=== PATIENT | male | born 1975 | race American Indian/Alaskan Native ===

== ENCOUNTER 2017-06-27 19:24 | Emergency (ER) | payer MEDICAID, OTHER ==
[~2017-06-27] VITALS: Ht 177.8 cm; Wt 104.5 kg
[2017-06-27 19:31] VITALS: Ht 177.8 cm; Wt 104.5 kg
[2017-06-27 20:31] LABS: BASOPHIL # 0.1 10^3/ul (0.0-0.1); BASOPHILS % 0.7 % (0.0-2.0); EOSINOPHILS # 0.4 10^3/ul (0.0-0.5); EOSINOPHILS % 3.8 % (0.0-7.0); HEMATOCRIT 39.2 % (42.0-52.0); HEMOGLOBIN 13.6 g/dl (14.0-18.0); LYMPHOCYTES # 2.7 10^3/ul (0.8-2.9); LYMPHOCYTES % 29.3 % (15.0-51.0); MEAN CORPUSCULAR HEMOGLOBIN 30.8 pg (29.0-33.0); MEAN CORPUSCULAR HGB CONC 34.7 g/dl (32.0-37.0); MEAN CORPUSCULAR VOLUME 88.7 fl (82.0-101.0); MEAN PLATELET VOLUME 9.8 fl (7.4-10.4); MONOCYTE # 0.6 10^3/ul (0.3-0.9); MONOCYTES % 6.8 % (0.0-11.0); NEUTROPHIL # 5.4 10^3/ul (1.6-7.5); PLATELET COUNT 228 10^3/UL (140-415); RED BLOOD COUNT 4.42 10^6/ul (4.70-6.10); RED CELL DISTRIBUTION WIDTH 13.3 % (11.5-14.5); WHITE BLOOD COUNT 9.1 10^3/ul (4.8-10.8)
[2017-06-27 20:49] LABS: ALANINE AMINOTRANSFERASE 43 IU/L (13-69); ALBUMIN 4.1 g/dl (3.3-4.9); ALBUMIN/GLOBULIN RATIO 1.51; ALKALINE PHOSPHATASE 69 IU/L (42-121); ANION GAP 13 (8-16); ASPARTATE AMINO TRANSFERASE 21 IU/L (15-46); BILIRUBIN,INDIRECT 0.1 mg/dl (0-1.1); BILIRUBIN,TOTAL 0.1 mg/dl (0.2-1.3); BLOOD UREA NITROGEN 17 mg/dl (7-20); CALCIUM 8.8 mg/dl (8.4-10.2); CARBON DIOXIDE 27 mmol/L (21-31); CHLORIDE 104 mmol/L (97-110); CREATININE 1.19 mg/dl (0.61-1.24); GLUCOSE 100 mg/dl (70-220); POTASSIUM 3.9 mmol/L (3.5-5.1); SODIUM 140 mmol/L (135-144); TOTAL PROTEIN 6.8 g/dl (6.1-8.1)
[2017-06-27 20:50] LABS: ACETAMINOPHEN < 10.0 ug/ml (10.0-30.0); ETHANOL < 10.0 mg/dl; SALICYLATE < 1.0 mg/dl (5.0-30.0)
--- NOTE | 2017-06-27 21:08 | PSY ---
Date/Time of Note Date/Time of Note DATE: 06/27/17 TIME: 21:03 Psychiatric Subjective Eval Consent Pt consented to telemedicine: Yes Subjective Evaluation Patient location: emergency Chief Complaint: STATES "I FEEL SUICIDAL SINCE YESTERDAY, BUT I HAVE NO DEFINITE PLAN" Reason for consult: suicidal ideation History of present illness Pt is a 41 year old male with depression, anhedonia, impaired sleep, weight gain , low energy and suicidal thinking. He reports depression for about one month. He stopped his wellbutrin about 1-2 weeks ago (for no reason). Patient has had suicidal thinking for last 1-2 days. He does not feel safe and brought himself to the hospital "before it gets too far." Patient reports he does not feel safe out of the hospital. He denies hallucinations and delusions. He denies s/s of hypomania and misael. Past psychiatric history Recent psychiatric admission 6 months ago for depression. Has a suicide attempts about 6 years ago. Hospitalization: yes Family History Denies Medical history See medical record Social History Marital status: single DPA/Conservatorship: No Occupation/Skilled Nursing: Entertainment/acting Psychiatric Objective Eval Mental Status Examination: Appearance: Groomed, Poor Hygiene Eye Contact: Good Psychomotor Activity: Normal Behavior: Cooperative Speech: Soft AFFECT: Blunt Mood: Depressed Though Process: Linear Thought Content: Normal Suicidal: Yes Homicidal: No On 72 hour hold: No Orientation: x4 Cognition: Alert Insight: Intact Judgement: Intact Attention Span: Intact Laboratory Results Laboratory Tests Test 06/27/17 20:00 White Blood Count 9.110^3/ul Red Blood Count 4.4210^6/ul Hemoglobin 13.6g/dl Hematocrit 39.2% Mean Corpuscular Volume 88.7fl Mean Corpuscular Hemoglobin 30.8pg Mean Corpuscular Hemoglobin Concent 34.7g/dl Red Cell Distribution Width 13.3% Platelet Count 76979^3/UL Mean Platelet Volume 9.8fl Neutrophils % 59.0% Lymphocytes % 29.3% Monocytes % 6.8% Eosinophils % 3.8% Basophils % 0.7% Nucleated Red Blood Cells % 0.0/100WBC Neutrophils # 5.410^3/ul Lymphocytes # 2.710^3/ul Monocytes # 0.610^3/ul Eosinophils # 0.410^3/ul Basophils # 0.110^3/ul Nucleated Red Blood Cells # 0.010^3/ul Sodium Level 140mmol/L Potassium Level 3.9mmol/L Chloride Level 104mmol/L Carbon Dioxide Level 27mmol/L Anion Gap 13 Blood Urea Nitrogen 17mg/dl Creatinine 1.19mg/dl Glucose Level 100mg/dl Calcium Level 8.8mg/dl Total Bilirubin 0.1mg/dl Direct Bilirubin 0.00mg/dl Indirect Bilirubin 0.1mg/dl Aspartate Amino Transf (AST/SGOT) 21IU/L Alanine Aminotransferase (ALT/SGPT) 43IU/L Alkaline Phosphatase 69IU/L Total Protein 6.8g/dl Albumin 4.1g/dl Globulin 2.70g/dl Albumin/Globulin Ratio 1.51 Salicylates Level < 1.0mg/dl Acetaminophen Level < 10.0ug/ml Ethyl Alcohol Level < 10.0mg/dl Assessment and Plan Assessment/Diagnosis Duarte I: Major Depressive Disorder, Recurrent, Unspecified Recommendation/Plan Medication Management NA Psychotherapy Support Pt. Caregiver/Family Education NA Follow-up/Disposition Recommend transfer to inpatient psychiatry. Pt is voluntary. He reports suicidal thoughts, depression and he does not feel safe out of the hospital. [id number] Recommendation: voluntary transfer to psychiatry inpatient RANDY COOK Jun 27, 2017 21:08
[2017-06-27 21:22] LABS: ADD UMIC NO; UR ASCORBIC ACID NEGATIVE (NEGATIVE); UR BILIRUBIN (Dip) NEGATIVE (NEGATIVE); UR BLOOD (Dip) NEGATIVE (NEGATIVE); UR CLARITY CLEAR (CLEAR); UR COLOR YELLOW (YELLOW); UR GLUCOSE (Dip) NEGATIVE (NEGATIVE); UR KETONES (Dip) NEGATIVE (NEGATIVE); UR LEUKOCYTE ESTERASE (Dip) NEGATIVE Leu/ul (NEGATIVE); UR NITRITE (Dip) NEGATIVE (NEGATIVE); UR SPECIFIC GRAVITY (Dip) 1.021 (1.003-1.030); UR TOTAL PROTEIN (Dip) NEGATIVE (NEGATIVE); UR UROBILINOGEN (Dip) 1+ mg/dL (NEGATIVE)
--- NOTE | 2017-06-27 21:30 | ERD ---
ER Documentation Chief Complaint Chief Complaint STATES "I FEEL SUICIDAL SINCE YESTERDAY, BUT I HAVE NO DEFINITE PLAN" HPI The patient is a 41-year-old male, presenting to the ER because of acute suicidal ideation, he has no plan. He denies homicidal/auditory/visual hallucination. He denies headache, neck pain, chest pain, abdominal pain. He smokes, denies drinking, denies illicit drug Medical history: Depression Surgical History: Right tib-fib ROS All systems reviewed and are negative except as per history of present illness. PMhx/Soc Medical and Surgical Hx: pt denies Surgical Hx Hx Psychiatric Problems: Yes (PTSD, Depression, ADHD) Hx Alcohol Use: No Hx Substance Use: No Hx Tobacco Use: No Smoking Status: Never smoker Physical Exam Vitals Vital Signs Date Time Temp Pulse Resp B/P Pulse Ox O2 Delivery O2 Flow Rate FiO2 06/27/17 19:31 98.0 90 20 120/72 99 Physical Exam Const: No acute distress. Head: Atraumatic. Eyes: Normal Conjunctiva. ENT: Normal External Ears, Nose and Mouth. Neck: Full range of motion. No meningismus. Resp: Clear to auscultation bilaterally. Cardio: Regular rate and rhythm. Abd: Soft, non distended, normal bowel sounds, non tender. Skin: No petechiae or rashes. Back: No midline or flank tenderness. Ext: No cyanosis, or edema. Neur: Awake and alert. No focal deficit Psych: depressed and suicidal Result Diagram: 06/27/17199906/27/171999 Results 24 hrs Laboratory Tests Test 06/27/17 20:00 06/27/17 20:32 White Blood Count 9.110^3/ul Red Blood Count 4.4210^6/ul Hemoglobin 13.6g/dl Hematocrit 39.2% Mean Corpuscular Volume 88.7fl Mean Corpuscular Hemoglobin 30.8pg Mean Corpuscular Hemoglobin Concent 34.7g/dl Red Cell Distribution Width 13.3% Platelet Count 15945^3/UL Mean Platelet Volume 9.8fl Neutrophils % 59.0% Lymphocytes % 29.3% Monocytes % 6.8% Eosinophils % 3.8% Basophils % 0.7% Nucleated Red Blood Cells % 0.0/100WBC Neutrophils # 5.410^3/ul Lymphocytes # 2.710^3/ul Monocytes # 0.610^3/ul Eosinophils # 0.410^3/ul Basophils # 0.110^3/ul Nucleated Red Blood Cells # 0.010^3/ul Sodium Level 140mmol/L Potassium Level 3.9mmol/L Chloride Level 104mmol/L Carbon Dioxide Level 27mmol/L Anion Gap 13 Blood Urea Nitrogen 17mg/dl Creatinine 1.19mg/dl Glucose Level 100mg/dl Calcium Level 8.8mg/dl Total Bilirubin 0.1mg/dl Direct Bilirubin 0.00mg/dl Indirect Bilirubin 0.1mg/dl Aspartate Amino Transf (AST/SGOT) 21IU/L Alanine Aminotransferase (ALT/SGPT) 43IU/L Alkaline Phosphatase 69IU/L Total Protein 6.8g/dl Albumin 4.1g/dl Globulin 2.70g/dl Albumin/Globulin Ratio 1.51 Salicylates Level < 1.0mg/dl Acetaminophen Level < 10.0ug/ml Ethyl Alcohol Level < 10.0mg/dl Urine Color YELLOW Urine Clarity CLEAR Urine pH 5.0 Urine Specific [place] 1.021 Urine Ketones NEGATIVEmg/dL Urine Nitrite NEGATIVEmg/dL Urine Bilirubin NEGATIVEmg/dL Urine Urobilinogen 1+mg/dL Urine Leukocyte Esterase NEGATIVELeu/ul Urine Hemoglobin NEGATIVEmg/dL Urine Glucose NEGATIVEmg/dL Urine Total Protein NEGATIVEmg/dl Procedures/MDM MEDICAL MAKING DECISION: The patient is a 41-year-old male, presenting with acute suicidal ideation The differential diagnoses considered include but are not limited to medical noncompliance, decompensated psychiatric illness, depression, anxiety Departure Diagnosis: Primary Impression: Suicidal ideation Additional Impression: Anemia Condition: Stable Comments He was evaluated by telepsychiatrist who put him on voluntary 5150 hold DERRICK WEAVER MD Jun 27, 2017 21:30
[2017-06-27 21:49] LABS: BARBITURATES Negative (NEGATIVE); BENZODIAZEPINES Negative (NEGATIVE); CANNABINOIDS Positive (NEGATIVE); COCAINE Negative (NEGATIVE); OPIATES Negative (NEGATIVE)
[2017-06-28 02:29] VITALS: BP 110/53; PULSE 89; RESP 18; TEMP 98.2
== END 2017-06-28 02:46 ==
LOC: E/R 19:24
DX: R45.851 Suicidal ideations (principal); D64.9 Anemia, unspecified
CPT/HCPCS: 36415; 80053; 80306; 80307; 81003; 85025; Z7502